=== PATIENT | male | born 1995 | race Caucasian/White ===

== ENCOUNTER 2020-05-09 13:51 | Emergency (ER) | payer MEDICAID ==
[~2020-05-09] VITALS: Ht 172.7 cm; Wt 68.2 kg
[2020-05-09 15:01] LABS: AMPHET/METH SCREEN,URINE POSITIVE (NEGATIVE); BARBITURATE SCREEN, URINE NEGATIVE (NEGATIVE); BENZODIAZEPINES SCREEN,URINE NEGATIVE (NEGATIVE); CANNABINOID SCREEN,URINE POSITIVE (NEGATIVE); COCAINE SCREEN,URINE NEGATIVE (NEGATIVE); METHADONE SCREEN, URINE NEGATIVE (NEGATIVE); OPIATE SCREEN,URINE NEGATIVE (NEGATIVE)
[2020-05-09 15:03] LABS: PHENCYCLIDINE SCREEN,URINE NEGATIVE (NEGATIVE)
[2020-05-09 15:55] VITALS: BP 141/71
== END 2020-05-09 16:05 | disposition home or self-care (01) ==
LOC: EMS 13:55 → EDBD 13:55 → EMS 16:05
DX: F29 Unspecified psychosis not due to a substance or known physiological condition (principal); F15.90 Other stimulant use, unspecified, uncomplicated
CPT/HCPCS: 99284